=== PATIENT | female | born 1950 | race Caucasian/White ===

== ENCOUNTER → 2017-05-27 | Outpatient (CLI) | payer OTHER | LOC: RAD 08:41 | DX: Z12.31 Encounter for screening mammogram for malignant neoplasm of breast (principal) ==

== ENCOUNTER → 2018-07-29 | Outpatient (CLI) | payer OTHER | LOC: RAD 09:15 | DX: Z12.31 Encounter for screening mammogram for malignant neoplasm of breast (principal) ==

== ENCOUNTER → 2019-09-20 | Outpatient (CLI) | payer OTHER | LOC: RAD 13:24 | DX: Z12.31 Encounter for screening mammogram for malignant neoplasm of breast (principal) ==